=== PATIENT | male | born 1960 | race Caucasian/White ===

== ENCOUNTER → 2016-10-11 | Day surgery (SDC) | payer OTHER ==
[~2016-10-11] MED LIST: BUPIVACAINE 0.25%-EPINEPHRINE 1:200,000 30 ML ONE; FENTANYL 100 MCG/2 ML VIAL IV ONE; FENTANYL 100 MCG/2 ML VIAL IV PRN; GLYCOPYRROLATE 1 MG VIAL IM ONE; LABETALOL 20 MG/4 ML SYRINGE IV PRN; LIDOCAINE 100 MG PFS IV ONE; Levofloxacin 500 mg/100 ml D5W 500 MG/100 ML RTU IV ONE; MEPERIDINE 25 MG/ML TUBEX IV PRN; METOCLOPRAMIDE 10 MG/2 ML VIAL IV ONE; MIDAZOLAM 2 MG/2 ML VIAL IV ONE; NEOSTIGMINE 1 MG/1 ML (1:1000) INJ 10 ML MDV IM ONE; ONDANSETRON HCL 4 MG ODT TAB PO PRN; ONDANSETRON HCL 4 MG/2 ML VIAL IV ONE; ONDANSETRON HCL 4 MG/2 ML VIAL IV PRN; OXYCODONE HCL 5 MG TABLET ONE; PROPOFOL 200 MG/20 ML VIAL IV ONE; ROCURONIUM 50 MG/5 ML VIAL IV ONE; SUCCINYLCHOLINE 20 MG/1 ML INJ 10 ML MDV IV ONE; hydrALAZINE 20 MG/ML VIAL IV PRN
[2016-10-11 07:23] LABS: MPV 7.2 fL (7.4-10.4)
[2016-10-11 07:29] LABS: BLOOD UREA NITROGEN 16 MG/DL (9-20); CALCIUM 9.6 MG/DL (8.4-10.2); CALCULATED OSMOLALITY 277 MOs/Kg (270-290); CHLORIDE 102 mEq/L (98-107); GLUCOSE 122 MG/DL (70-99); SODIUM LEVEL 143 mEq/L (137-146); TOTAL PROTEIN 7.5 G/DL (6.3-8.2)
--- NOTE | 2016-10-11 08:02 | HIM.ANES ---
Anesthesia Evaluation & Plan Diagnoses: UMBILICAL HERNIA WITHOUT OBSTRUCTION OR GANGRENE (10/11/16) Consented Procedure: UMBILICAL HERNIA REPAIR WITH POSSIBLE MESH - Focused Review of Systems Cardiac History: Yes: Hx Hypertension, Hx Cardiac Disorders, Hx Abnormal Cholesterol/Hyperlipidemia HEENT: Yes: Hx Vision Problem (WEARS GLASSES), Other HEENT Problems No: Loose/Decaying Teeth Hx Other HEENT Surgery: T&A 08/2006 Hx Other HEENT Problems: ALLERGIC RHINNITIS Respiratory: Yes: Hx Asthma, Hx Snoring Gastrointestinal: Yes: Hx Gastroesophageal Reflux Disease, Hx Gastrointestinal Disorders, Hx Colonoscopy (2011 NORMAL) Neurological/Musculoskeletal: Yes: Hx Transient Ischemic Attacks (TIA) (NO RESIDUAL), Hx Back Pain, Hx Neurological Disorders Psychological: Yes Hx Anxiety, Yes Hx Mental/Emotional Disorders Endocrine: Yes: Hx Insulin Dependent Diabetes Blood/Autoimmune: No: Hx AIDS, Hx Hepatitis (type) Smoking Status: Never smoker Surgical History: Yes: Appendectomy (2005), Knee (LEFT KNEE ARTHROSCOPIC 1997) Other Surgical History: T&A 08/2006 - Focused Physical Exam NPO since: 10/10/16 2200 Mallampati: Class I Thyromental Distance: Greater than 3 Neck: Full Range of Motion Dental: Normal - no significant findings Cardiovascular/Chest: Normal (RRR no mumurs or rubs.) Respiratory: Lungs clear. negative: Rhonchi, Wheezing Any problems with anesthesia, including nausea and vomiting?: No Any relatives with a history of Malignant Hyperthermia?: No Does patient have a history of Malignant Hyperthermia?: No Beta Stephon given (if appropriate): N/A Does the patient have a history of Motion Sickness-: No Other: CBC/BMP/Other 10/11/16 07:15 10/11/16 07:15 Allergies Allergy/AdvReac Type Severity Reaction Status Date / Time hydrocodone [Hydrocodone] Allergy Itching Verified 10/11/16 07:30 Penicillins Allergy Edema-Gener Verified 10/11/16 07:30 alized Home Medications Medication Instructions Recorded Last Taken Type Ascorbic Acid [Vitamin C] 1,000 mg PO DAILY 10/10/16 10/10/16 History Atorvastatin Calcium [Lipitor] 40 mg PO HS 10/10/16 10/10/16 History Ergocalciferol (Vitamin D2) 2,000 unit PO DAILY 10/10/16 10/10/16 History [Vitamin D2] Gluc 2Kcl/Chondr/Jenelle Hy/Hy AC 1 each PO BID 10/10/16 10/10/16 History [Glucosamine & Chondroitin Cap] Humalog Pump 0.8 units SQ .CONTINUOUS PUMP 10/10/16 10/11/16 History Lisinopril 10 mg PO DAILY 10/10/16 10/11/16 05:30 History Loratadine 10 mg PO DAILY 10/10/16 10/10/16 History Montelukast Sodium [Singulair] 10 mg PO DAILY 10/10/16 10/10/16 History Vitamin B Complex 1 each PO DAILY 10/10/16 10/10/16 History Vitamin E 400 unit PO DAILY 10/10/16 10/10/16 History Height and Weight Patient's height 6 ft 1 in Patient's weight 84.822 kg Vital Signs Temperature 98 F 10/11/16 07:33 Pulse Rate 69 10/11/16 07:33 Respiratory Rate 18 10/11/16 07:33 Blood Pressure 111/68 10/11/16 07:33 Pulse Oxygen Saturation 97 10/11/16 07:33 METS - Level of Activity: Climbing stairs(1 flight),walking level ground, running short distance - Anesthetic Plan Anesthesia Type: General ASA Class: 3 -: I have examined this patient and reviewed the medical record. The patient has been assessed prior to anesthesia. Risks and benefits of anesthesia and anesthetic technique options have been discussed and all questions answered. The patient accepts the risk and desires me to proceed with the planned anesthetic.
--- NOTE | 2016-10-11 10:42 | HIMOPRPT ---
DATE OF PROCEDURE: 10/11/16 PREOPERATIVE DIAGNOSES: Incarcerated umbilical hernia. POSTOPERATIVE DIAGNOSES: Incarcerated umbilical and incisional hernias. PROCEDURES Incarcerated umbilical and incisional hernia repairs with mesh prosthesis. SURGEON: Mario Fuller MD ANESTHESIA: General. COMPLICATIONS: None. ESTIMATED BLOOD LOSS: Minimal. ANTIBIOTICS: Preoperative antibiotics given. INDICATIONS: The patient is a very pleasant 56-year-old male who had been found to have an umbilical hernia and incisional hernias. These were incarcerated. We explained the risks and benefits of hernia repair to him including the risk of infection, bleeding and anesthesia as well as a well- known risk of recurrence and mesh complications. He had understood and agreed was brought for the above-mentioned procedures. OPERATIVE NOTE: The patient was brought to the operating room and placed on the operating table in a supine position. After adequate amount of general anesthesia he was prepped and draped in sterile manner when given the okay by anesthesia after appropriate time-out an incision around the umbilicus was made through the skin subcutaneous tissues was scalpel dissection. Bleeding was controlled Bovie cautery. The umbilical skin was dissected away from the hernia sac. There was a large area preperitoneal fat that was excised without any problems. The hernia sac was then reduced. We noted another hernia above this 1 in the epigastric region and 1 below this where he had had his laparoscopic appendectomy from the 5 mm trocar site. These were reduced as well. The epigastric and umbilical defects were combined. The incisional hernia was in the rectus sheath so an Ethibond suture was used to close this without any problems. At that point we dissected the preperitoneal space. We assured hemostasis and then placed a proceed patch in the preperitoneal space and sutured this to the fascia with 0 Prolene suture. It was sutured in all quadrants. We then irrigated the wound and brought the fascia together with interrupted [id number] 1. Vicryl sutures. The wound was irrigated and the umbilical skin tacked down to the fascia with a 3 0 Vicryl. Three 0 Vicryl was used to bring the subcutaneous tissues together and surgical clips were used to bring the skin together. Patient was then awoke and taken recover room in excellent condition with correct sponge counts needle counts.
--- NOTE | 2016-10-11 10:49 | CAPUEKG ---
[place], [place] Test Date: 2016-10-11 Pat Name: GRETCHEN WEINER Department: Room: Gender: Male Lead Sql Developer: : Requested By: Order Number: Reading MD: Brian Syed MD Measurements Intervals [place] Rate: 81 P: 66 [place]: 152 QRS: 76 QRSD: 88 T: 61 QT: 388 QTc: 450 Interpretive Statements Normal sinus rhythm with sinus arrhythmia Normal ECG Electronically Signed On 10-11-16 10:48:59 EST by Brian Syed MD <[id number]> [id number]
[2016-10-11 11:29] VITALS: TEMP 97.2
[2016-10-11 12:39] VITALS: PULSE 65
[2016-10-11 13:53] VITALS: BP 105/69
--- NOTE | 2016-10-11 13:53 | SC.ANESPOS ---
Post-Anesthesia Note LOC: Fully Awake Post-Anesthesia Assessment: Awake, Returned to Baseline, Hemodynamically Stable , Pain Control Adequate Phase I & II Recovery Complete: Yes Apparent Anesthesia Complication: No : N PACU Discharge Time: 10:55 - Vital Signs Blood Pressure: 105/69 Pulse: 65 Resp Rate: 16 O2 Sat: 100 Temp: 97.2 F - Comments Anesthesia Discharge Time Report Time 10:55
== END ==
LOC: SDC 06:55
PROVIDERS: ATTEND Surgery
PROC: 0WUF0JZ Supplement Abdominal Wall with Synthetic Substitute, Open Approach (ICD-10-PCS; principal; 2016-10-11 08:40)
DX: K42.0 Umbilical hernia with obstruction, without gangrene (principal); K43.0 Incisional hernia with obstruction, without gangrene; I10 Essential (primary) hypertension; E78.5 Hyperlipidemia, unspecified; J45.909 Unspecified asthma, uncomplicated; K21.9 Gastro-esophageal reflux disease without esophagitis; F41.9 Anxiety disorder, unspecified; E11.9 Type 2 diabetes mellitus without complications; M19.90 Unspecified osteoarthritis, unspecified site; G47.30 Sleep apnea, unspecified; Z79.4 Long term (current) use of insulin; Z86.73 Personal history of transient ischemic attack (TIA), and cerebral infarction without residual deficits; Z79.899 Other long term (current) drug therapy
CPT/HCPCS: 49560; 49568; 49587; 80053; 82962; 85027; 93005; C1781; J0330; J1956; J2001; J2250; J2405; J2710; J2765; J3010; J3490